=== PATIENT | female | born 1960 | race Two or more races ===

== ENCOUNTER 2021-06-06 00:07 | Emergency (ER) | payer MEDICAID ==
[~2021-06-06] VITALS: Ht 160 cm; Wt 55.0 kg
[2021-06-06 00:56] LABS: CLARITY URINE CLEAR (CLEAR); COLOR URINE YELLOW (YELLOW); HEMATOCRIT. 30.6 % (36.0-48.0); HEMOGLOBIN. 10.4 g/dL (12.0-16.0); KETONES URINE NEGATIVE (NEGATIVE); LEUKOCYTE ESTERASE URINE TRACE (NEGATIVE); MEAN CORPUSCULAR HEMOGLOBIN 36.5 pg (28.0-32.0); MEAN PLATELET VOLUME 7.3 fl (7.4-10.4); NITRITE URINE NEGATIVE (NEGATIVE); OCCULT BLOOD URINE NEGATIVE (NEGATIVE); PH URINE 6.5 (4.5-8.0); PLATELET 299 x1000/uL (130-400); PROTEIN URINE TRACE (NEGATIVE); RED BLOOD CELL COUNT 2.85 mill/uL (4.2-5.4); RED CELL DISTRIBUTION WIDTH 16.1 % (11.6-14.6); SPECIFIC GRAVITY URINE 1.007 (1.005-1.030); UROBILINOGEN URINE 0.2 E.U./dL (0.2-1.0)
[2021-06-06 01:03] LABS: CHLORIDE 102 mEq/L (98-107)
[2021-06-06 01:10] LABS: ETHANOL BLOOD < 10 mg/dL
[2021-06-06 01:12] LABS: *AMPHETAMINES SCREEN URINE NEGATIVE (NEGATIVE); *BARBITURATES SCREEN URINE NEGATIVE (NEGATIVE); *BENZODIAZEPINES SCREEN URINE NEGATIVE (NEGATIVE); *COCAINE SCREEN URINE NEGATIVE (NEGATIVE); METHADONE URINE SCREEN NEGATIVE (NEGATIVE)
[2021-06-06 01:13] LABS: CANNABINOID URINE SCREEN NEGATIVE (NEGATIVE); OPIATES URINE SCREEN NEGATIVE (NEGATIVE); PHENCYCLIDINE URINE SCREEN NEGATIVE (NEGATIVE)
[2021-06-06 03:46] VITALS: BP 140/96
[2021-06-06 04:07] LABS: PLATELET ESTIMATE NORMAL
== END 2021-06-06 03:57 | disposition home or self-care (01) ==
LOC: ER 00:07
DX: G40.909 Epilepsy, unspecified, not intractable, without status epilepticus (principal); Z85.9 Personal history of malignant neoplasm, unspecified
CPT/HCPCS: 36415; 80053; 80305; 80320; 81003; 82140; 85025; 93005; 99285; G0480

== ENCOUNTER 2021-06-26 16:37 | Emergency (ER) | payer MEDICAID ==
[~2021-06-26] VITALS: Ht 167.6 cm; Wt 63.0 kg
[2021-06-26 18:57] LABS: CHLORIDE 108 mEq/L (98-107)
[2021-06-26 18:58] LABS: BASOPHILS % 0.6 % (0.0-2.0); EOSINOPHILS % 3.1 % (0.0-5.0); HEMATOCRIT. 33.3 % (36.0-48.0); HEMOGLOBIN. 11.1 g/dL (12.0-16.0); LYMPHOCYTES % 17.2 % (20.0-50.0); MEAN CORPUSCULAR HEMOGLOBIN 36.2 pg (28.0-32.0); MEAN CORPUSCULAR VOLUME 108.2 fL (81.0-99.0); MEAN PLATELET VOLUME 7.6 fl (7.4-10.4); MONOCYTES % 13.4 % (2.0-8.0); NEUTROPHILS % 65.7 % (40.0-76.0); PLATELET 247 x1000/uL (130-400); RED BLOOD CELL COUNT 3.08 mill/uL (4.2-5.4); RED CELL DISTRIBUTION WIDTH 15.1 % (11.6-14.6)
[2021-06-26 21:08] VITALS: BP 118/80
[2021-06-26] MEDS ORDERED: KETOROLAC 15MG/ML VIAL IV NR (21:15)
== END 2021-06-26 22:27 | disposition home or self-care (01) ==
LOC: ER 16:37
DX: R07.89 Other chest pain (principal)
CPT/HCPCS: 36415; 71045; 71275; 74174; 80053; 84484; 85025; 93005; 96374; 99285; J1885

== ENCOUNTER 2021-07-15 14:10 | Inpatient (IN) | payer MEDICAID ==
[~2021-07-15] VITALS: Ht 160 cm; Wt 74.4 kg
[2021-07-15] MEDS ORDERED: MORPHINE SULFATE 4 MG/ML CPJ (NOT FOR IM USE) IV STA (16:08)
[2021-07-15] MEDS ORDERED: ONDANSETRON HCL 4MG/2ML INJ IV STA (16:08)
[2021-07-15] MEDS ORDERED: SODIUM CHLORIDE 0.9% 1,000 ML IV ONE (16:15)
[2021-07-15 16:25] LABS: BASOPHILS % 0.4 % (0.0-2.0); EOSINOPHILS % 1.3 % (0.0-5.0); HEMATOCRIT. 31.9 % (36.0-48.0); HEMOGLOBIN. 10.6 g/dL (12.0-16.0); LYMPHOCYTES % 11.7 % (20.0-50.0); MEAN CORPUSCULAR VOLUME 105.5 fL (81.0-99.0); MEAN PLATELET VOLUME 7.1 fl (7.4-10.4); MONOCYTES % 9.8 % (2.0-8.0); NEUTROPHILS % 76.8 % (40.0-76.0); PLATELET 297 x1000/uL (130-400); RED BLOOD CELL COUNT 3.03 mill/uL (4.2-5.4); RED CELL DISTRIBUTION WIDTH 14.8 % (11.6-14.6)
[2021-07-15 16:27] LABS: CLARITY URINE CLOUDY (CLEAR); COLOR URINE DARK YELLOW (YELLOW); KETONES URINE TRACE (NEGATIVE); LEUKOCYTE ESTERASE URINE TRACE (NEGATIVE); NITRITE URINE NEGATIVE (NEGATIVE); OCCULT BLOOD URINE NEGATIVE (NEGATIVE); PH URINE 5.5 (4.5-8.0); PROTEIN URINE 2+ (NEGATIVE); SPECIFIC GRAVITY URINE 1.026 (1.005-1.030); UROBILINOGEN URINE 0.2 E.U./dL (0.2-1.0)
[2021-07-15 16:29] LABS: CHLORIDE 103 mEq/L (98-107)
[2021-07-15 16:31] LABS: PROTHROMBIN TIME 10.9 sec (9.6-11.0)
[2021-07-15] MEDS ORDERED: SODIUM CHLORIDE 0.9% 1000ML BAG (SEPSIS BOLUS) IV ONE (17:00)
[2021-07-15] MEDS ORDERED: PIPERACILLIN/TAZ 3.375G PREMIX 50 ML IV ONE (17:00)
[2021-07-16 09:00] VITALS: BP 125/66
[2021-07-16] MEDS ORDERED: PHEN50TA2 PO (10:17)
[2021-07-16] MEDS ORDERED: LAMO200T50 MT (10:17)
[2021-07-16] MEDS ORDERED: OMEP40CA20 MT (10:17)
[2021-07-16] MEDS ORDERED: LEVE10006 MT (10:17)
[2021-07-16] MEDS ORDERED: CLONIDINE 0.1MG TABLET PO PRN (10:30)
[2021-07-16] MEDS ORDERED: ACETAMINOPHEN 325MG TABLET PO PRN ×2 (10:30)
[2021-07-16] MEDS ORDERED: LORAZEPAM 0.5MG TABLET PO PRN (10:30)
[2021-07-16] MEDS ORDERED: IPRATROPIUM/ALBUTEROL 0.5-3(2.5)MG/3ML NEB HHN PRN (10:30)
[2021-07-16] MEDS ORDERED: HYDROCODONE/ACETAMINOPHEN 5/325MG TABLET PO PRN (10:30)
[2021-07-16] MEDS: MORPHINE SULFATE 2 MG/ML CPJ (NOT FOR IM USE) IV PRN ×2 (11:01→21:06)
[2021-07-16 12:00] VITALS: BP 107/76
[2021-07-16] MEDS: SODIUM CHLORIDE 0.9% 1,000 ML IV SCH (12:54)
[2021-07-16] MEDS: PANTOPRAZOLE SODIUM 40 MG/VIAL IV SCH (12:54)
[2021-07-16] MEDS: LEVETIRACETAM 1,000 MG in SODIUM CHLORIDE 0.9% 100 ML IV SCH ×2 (14:01→21:37)
[2021-07-16] MEDS: PHENYTOIN SODIUM EXTENDED 100MG CAPSULE PO SCH ×2 (14:01→21:06)
[2021-07-16] MEDS: LAMOTRIGINE 100MG TABLET PO SCH ×2 (14:01→21:06)
[2021-07-16 16:00] VITALS: BP 114/62
[2021-07-16 16:28] LABS: CANNABINOID URINE SCREEN NEGATIVE (NEGATIVE); METHADONE URINE SCREEN NEGATIVE (NEGATIVE); OPIATES URINE SCREEN PRESUMTIVE POSITIVE (NEGATIVE); PHENCYCLIDINE URINE SCREEN NEGATIVE (NEGATIVE)
[2021-07-16 16:29] LABS: *AMPHETAMINES SCREEN URINE NEGATIVE (NEGATIVE); *BARBITURATES SCREEN URINE NEGATIVE (NEGATIVE); *BENZODIAZEPINES SCREEN URINE NEGATIVE (NEGATIVE); *COCAINE SCREEN URINE NEGATIVE (NEGATIVE)
[2021-07-16 20:00] VITALS: BP 142/74
[2021-07-16] MEDS: ONDANSETRON HCL 4MG/2ML INJ IV PRN (21:06)
[2021-07-17] VITALS: BP 119/64
[2021-07-17] MEDS: HYDROCODONE/ACETAMINOPHEN 10/325MG TABLET PO PRN ×3 (00:34→21:43)
[2021-07-17 04:00] VITALS: BP 111/66
[2021-07-17] MEDS: ONDANSETRON HCL 4MG/2ML INJ IV PRN ×2 (04:38→21:42)
[2021-07-17] MEDS: MORPHINE SULFATE 2 MG/ML CPJ (NOT FOR IM USE) IV PRN (04:38)
[2021-07-17] MEDS: SODIUM CHLORIDE 0.9% 1,000 ML IV SCH ×2 (04:39→18:06)
[2021-07-17] MEDS: PHENYTOIN SODIUM EXTENDED 100MG CAPSULE PO SCH (05:50)
[2021-07-17 06:47] LABS: CHLORIDE 103 mEq/L (98-107)
[2021-07-17 06:58] LABS: BASOPHILS % 0.4 % (0.0-2.0); EOSINOPHILS % 2.7 % (0.0-5.0); HEMATOCRIT. 31.2 % (36.0-48.0); HEMOGLOBIN. 10.4 g/dL (12.0-16.0); LYMPHOCYTES % 10.4 % (20.0-50.0); MEAN CORPUSCULAR VOLUME 105.2 fL (81.0-99.0); MEAN PLATELET VOLUME 6.9 fl (7.4-10.4); MONOCYTES % 12.7 % (2.0-8.0); NEUTROPHILS % 73.8 % (40.0-76.0); PLATELET 300 x1000/uL (130-400); RED BLOOD CELL COUNT 2.96 mill/uL (4.2-5.4); RED CELL DISTRIBUTION WIDTH 14.6 % (11.6-14.6)
[2021-07-17 08:02] VITALS: BP 116/64
[2021-07-17] MEDS: PANTOPRAZOLE SODIUM 40 MG/VIAL IV SCH (09:12)
[2021-07-17] MEDS: LAMOTRIGINE 100MG TABLET PO SCH ×2 (09:13→21:42)
[2021-07-17] MEDS ORDERED: INFLUENZA VACCINE 05/PF 0.5 ML SYRINGE IM ONE (10:00)
[2021-07-17] MEDS ORDERED: NALOXONE HCL 0.4MG/ML VIAL IV PRN (10:45)
[2021-07-17] MEDS: LEVETIRACETAM 1,000 MG in SODIUM CHLORIDE 0.9% 100 ML IV SCH ×2 (10:49→21:42)
[2021-07-17] MEDS ORDERED: PHENYTOIN SODIUM 400 MG in SODIUM CHLORIDE 0.9% 50 ML IV SCH ×2 (12:00→18:45)
[2021-07-17 12:20] VITALS: BP 124/68
[2021-07-17 16:00] VITALS: BP 104/77
[2021-07-17] MEDS: LIDOCAINE 5% PATCH TOP SCH (18:05)
[2021-07-17 20:00] VITALS: BP 131/76
[2021-07-18] VITALS: BP 118/65
[2021-07-18] MEDS ORDERED: PHENYTOIN SODIUM 400 MG in SODIUM CHLORIDE 0.9% 50 ML IV SCH (02:00)
[2021-07-18] MEDS: HYDROCODONE/ACETAMINOPHEN 10/325MG TABLET PO PRN (02:18)
[2021-07-18 04:00] VITALS: BP 120/77
[2021-07-18] MEDS: PHENYTOIN SODIUM 400 MG in SODIUM CHLORIDE 0.9% 50 ML IV SCH ×2 (05:37→18:34)
[2021-07-18] MEDS: PHENYTOIN SODIUM EXTENDED 100MG CAPSULE PO SCH ×3 (05:37→20:49)
[2021-07-18] MEDS: MORPHINE SULFATE 2 MG/ML CPJ (NOT FOR IM USE) IV PRN (06:42)
[2021-07-18 07:28] LABS: INR 1.1; PROTHROMBIN TIME 11.8 sec (9.6-11.0)
[2021-07-18 07:56] VITALS: BP 114/74
[2021-07-18] MEDS ORDERED: SODIUM BICARBONATE 4% (2.4MEQ) 5ML VIAL IV ONE (08:53)
[2021-07-18] MEDS ORDERED: LIDOCAINE HCL 1% 30ML VIAL (10MG/ML) ONE (08:53)
[2021-07-18] MEDS: PANTOPRAZOLE SODIUM 40 MG/VIAL IV SCH (10:37)
[2021-07-18] MEDS: LAMOTRIGINE 100MG TABLET PO SCH ×2 (10:38→20:49)
[2021-07-18] MEDS: LEVETIRACETAM 1,000 MG in SODIUM CHLORIDE 0.9% 100 ML IV SCH ×2 (10:38→20:48)
[2021-07-18] MEDS: SODIUM CHLORIDE 0.9% 1,000 ML IV SCH ×2 (10:39→23:51)
[2021-07-18 11:07] VITALS: BP 126/69
[2021-07-18] MEDS: LIDOCAINE 5% PATCH TOP SCH (11:07)
[2021-07-18 16:00] VITALS: BP 114/66
[2021-07-18] MEDS: BENZONATATE 100MG CAPSULE PO PRN (18:34)
[2021-07-18 20:20] VITALS: BP 118/73
[2021-07-18] MEDS: ONDANSETRON HCL 4MG/2ML INJ IV PRN (20:48)
[2021-07-19] VITALS (7 sets, daily range): BP systolic 113–130; BP diastolic 67–81
[2021-07-19] MEDS: PHENYTOIN SODIUM EXTENDED 100MG CAPSULE PO SCH ×3 (05:53→21:46)
[2021-07-19] MEDS: PHENYTOIN SODIUM 400 MG in SODIUM CHLORIDE 0.9% 50 ML IV SCH (05:53)
[2021-07-19 07:15] LABS: BASOPHILS % 0.3 % (0.0-2.0); EOSINOPHILS % 1.3 % (0.0-5.0); HEMOGLOBIN. 10.1 g/dL (12.0-16.0); LYMPHOCYTES % 10.6 % (20.0-50.0); MEAN CORPUSCULAR HEMOGLOBIN 34.8 pg (28.0-32.0); MEAN CORPUSCULAR VOLUME 103.5 fL (81.0-99.0); MONOCYTES % 11.8 % (2.0-8.0); PLATELET 351 x1000/uL (130-400); RED CELL DISTRIBUTION WIDTH 14.8 % (11.6-14.6)
[2021-07-19 07:26] LABS: CHLORIDE 102 mEq/L (98-107)
[2021-07-19] MEDS: PANTOPRAZOLE SODIUM 40 MG/VIAL IV SCH (09:03)
[2021-07-19] MEDS: LAMOTRIGINE 100MG TABLET PO SCH ×2 (09:03→21:46)
[2021-07-19] MEDS: LIDOCAINE 5% PATCH TOP SCH (09:05)
[2021-07-19] MEDS: LEVETIRACETAM 1,000 MG in SODIUM CHLORIDE 0.9% 100 ML IV SCH ×2 (10:16→21:46)
[2021-07-19] MEDS ORDERED: LORAZEPAM 2MG/ML CPJ IV PRN (10:45)
[2021-07-19] MEDS: METOCLOPRAMIDE HCL 10MG/2ML VIAL IV SCH ×2 (11:48→18:55)
[2021-07-19] MEDS: ONDANSETRON HCL 4MG/2ML INJ IV PRN (11:48)
[2021-07-19] MEDS: SODIUM CHLORIDE 0.9% 1,000 ML IV SCH (14:22)
[2021-07-19] MEDS: DOCUSATE SODIUM 100MG CAPSULE PO PRN (18:55)
[2021-07-20 00:22] VITALS: BP 111/68
[2021-07-20] MEDS: METOCLOPRAMIDE HCL 10MG/2ML VIAL IV SCH ×5 (00:53→23:40)
[2021-07-20] MEDS: BENZONATATE 100MG CAPSULE PO PRN ×2 (01:00→21:57)
[2021-07-20 04:00] VITALS: BP 102/61
[2021-07-20] MEDS: PHENYTOIN SODIUM 400 MG in SODIUM CHLORIDE 0.9% 50 ML IV SCH ×2 (05:09→17:40)
[2021-07-20] MEDS: DOCUSATE SODIUM 100MG CAPSULE PO PRN (05:09)
[2021-07-20] MEDS: PHENYTOIN SODIUM EXTENDED 100MG CAPSULE PO SCH ×3 (05:09→21:33)
[2021-07-20] MEDS: SODIUM CHLORIDE 0.9% 1,000 ML IV SCH ×2 (05:10→21:57)
[2021-07-20] MEDS: ONDANSETRON HCL 4MG/2ML INJ IV PRN ×2 (06:44→13:30)
[2021-07-20 08:00] VITALS: BP 101/49
[2021-07-20] MEDS: LEVETIRACETAM 1,000 MG in SODIUM CHLORIDE 0.9% 100 ML IV SCH ×2 (09:37→21:33)
[2021-07-20] MEDS: LAMOTRIGINE 100MG TABLET PO SCH ×2 (09:37→21:33)
[2021-07-20] MEDS: LIDOCAINE 5% PATCH TOP SCH (09:37)
[2021-07-20] MEDS: PANTOPRAZOLE SODIUM 40 MG/VIAL IV SCH (09:37)
[2021-07-20] MEDS ORDERED: TRAMADOL 50MG TABLET PO PRN (09:45)
[2021-07-20 12:13] VITALS: BP 112/55
[2021-07-20 16:19] VITALS: BP 113/63
[2021-07-20 20:00] VITALS: BP 127/81
[2021-07-21] VITALS: BP 103/60
[2021-07-21 04:00] VITALS: BP 126/82
[2021-07-21 05:39] LABS: CHLORIDE 105 mEq/L (98-107)
[2021-07-21 05:42] LABS: BASOPHILS % 0.6 % (0.0-2.0); EOSINOPHILS % 1.4 % (0.0-5.0); HEMATOCRIT. 27.7 % (36.0-48.0); HEMOGLOBIN. 9.4 g/dL (12.0-16.0); MEAN CORPUSCULAR HEMOGLOBIN 34.7 pg (28.0-32.0); MEAN CORPUSCULAR VOLUME 102.8 fL (81.0-99.0); MEAN PLATELET VOLUME 6.7 fl (7.4-10.4); PLATELET 353 x1000/uL (130-400); RED CELL DISTRIBUTION WIDTH 14.6 % (11.6-14.6)
[2021-07-21] MEDS: METOCLOPRAMIDE HCL 10MG/2ML VIAL IV SCH ×4 (06:03→23:15)
[2021-07-21] MEDS: PHENYTOIN SODIUM EXTENDED 100MG CAPSULE PO SCH ×4 (06:03→21:24)
[2021-07-21] MEDS: PHENYTOIN SODIUM 400 MG in SODIUM CHLORIDE 0.9% 50 ML IV SCH ×2 (06:04→18:58)
[2021-07-21 08:00] VITALS: BP 133/78
[2021-07-21] MEDS: LAMOTRIGINE 100MG TABLET PO SCH ×2 (09:55→21:24)
[2021-07-21] MEDS: LIDOCAINE 5% PATCH TOP SCH (09:56)
[2021-07-21 12:00] VITALS: BP 128/76
[2021-07-21] MEDS: MECLIZINE 25MG TABLET PO PRN ×2 (13:55→14:04)
[2021-07-21 16:00] VITALS: BP 128/76
[2021-07-21] MEDS: PANTOPRAZOLE SODIUM 40 MG/VIAL IV SCH (16:06)
[2021-07-21] MEDS: ONDANSETRON HCL 4MG/2ML INJ IV PRN ×2 (16:06→21:24)
[2021-07-21] MEDS: SODIUM CHLORIDE 0.9% 1,000 ML IV SCH (16:07)
[2021-07-21] MEDS: LEVETIRACETAM 1,000 MG in SODIUM CHLORIDE 0.9% 100 ML IV SCH ×2 (16:32→18:25)
[2021-07-21 20:00] VITALS: BP 123/85
[2021-07-21] MEDS: BENZONATATE 100MG CAPSULE PO PRN (21:24)
[2021-07-22 00:01] VITALS: BP 138/82
[2021-07-22 04:00] VITALS: BP 123/65
[2021-07-22] MEDS: METOCLOPRAMIDE HCL 10MG/2ML VIAL IV SCH ×3 (05:40→18:00)
[2021-07-22] MEDS: PHENYTOIN SODIUM EXTENDED 100MG CAPSULE PO SCH ×3 (05:40→21:17)
[2021-07-22] MEDS: PHENYTOIN SODIUM 400 MG in SODIUM CHLORIDE 0.9% 50 ML IV SCH (05:40)
[2021-07-22] MEDS: SODIUM CHLORIDE 0.9% 1,000 ML IV SCH ×2 (05:40→20:15)
[2021-07-22] MEDS: BENZONATATE 100MG CAPSULE PO PRN (05:58)
[2021-07-22 07:03] LABS: CHLORIDE 107 mEq/L (98-107)
[2021-07-22 07:55] LABS: BASOPHILS % 0.7 % (0.0-2.0); EOSINOPHILS % 2.2 % (0.0-5.0); HEMATOCRIT. 33.4 % (36.0-48.0); HEMOGLOBIN. 10.5 g/dL (12.0-16.0); LYMPHOCYTES % 12.3 % (20.0-50.0); MEAN CORPUSCULAR HEMOGLOBIN 33.3 pg (28.0-32.0); MEAN CORPUSCULAR VOLUME 106.3 fL (81.0-99.0); MEAN PLATELET VOLUME 8.5 fl (7.4-10.4); MONOCYTES % 11.7 % (2.0-8.0); NEUTROPHILS % 73.1 % (40.0-76.0); PLATELET 106 x1000/uL (130-400); RED BLOOD CELL COUNT 3.14 mill/uL (4.2-5.4); RED CELL DISTRIBUTION WIDTH 15.2 % (11.6-14.6)
[2021-07-22 08:00] VITALS: BP 114/60
[2021-07-22] MEDS: PANTOPRAZOLE SODIUM 40 MG/VIAL IV SCH (08:57)
[2021-07-22] MEDS: LAMOTRIGINE 100MG TABLET PO SCH ×2 (08:57→21:17)
[2021-07-22] MEDS: LIDOCAINE 5% PATCH TOP SCH (08:58)
[2021-07-22] MEDS: LEVETIRACETAM 1,000 MG in SODIUM CHLORIDE 0.9% 100 ML IV SCH (10:22)
[2021-07-22] MEDS ORDERED: ONDA4TAB11 PO (11:25)
[2021-07-22] MEDS ORDERED: METO10TA3 MT (11:25)
[2021-07-22] MEDS ORDERED: MECL-159 MT (11:25)
[2021-07-22 12:00] VITALS: BP 117/70
[2021-07-22 16:00] VITALS: BP 145/72
[2021-07-22 20:00] VITALS: BP 107/60
[2021-07-22] MEDS: LEVETIRACETAM 500MG TABLET PO SCH (21:17)
[2021-07-23 04:30] VITALS: BP 122/60
[2021-07-23] MEDS: METOCLOPRAMIDE HCL 10MG/2ML VIAL IV SCH ×4 (05:09→18:00)
[2021-07-23] MEDS: PHENYTOIN SODIUM EXTENDED 100MG CAPSULE PO SCH ×2 (05:19→13:50)
[2021-07-23] MEDS: LAMOTRIGINE 100MG TABLET PO SCH (08:03)
[2021-07-23] MEDS: LEVETIRACETAM 500MG TABLET PO SCH (08:03)
[2021-07-23] MEDS: LIDOCAINE 5% PATCH TOP SCH (08:04)
[2021-07-23] MEDS: PANTOPRAZOLE SODIUM 40 MG/VIAL IV SCH (08:04)
[2021-07-23 08:08] VITALS: BP 131/77
[2021-07-23 09:14] VITALS: BP 131/77
[2021-07-23] MEDS: SODIUM CHLORIDE 0.9% 1,000 ML IV SCH (11:39)
[2021-07-23 11:47] VITALS: BP 130/73
[2021-07-23 16:20] VITALS: BP 136/83
== END 2021-07-23 18:40 | disposition home or self-care (01) | DRG 530 ==
LOC: ER 14:10 → 6WST 19:59 → ENRESERV 07-16 07:05
PROVIDERS: ADMIT Internal Medicine; ATTEND Internal Medicine
PROC: 0W9G3ZZ Drainage of Peritoneal Cavity, Percutaneous Approach (ICD-10-PCS; principal; 2021-07-18)
DX: C56.9 Malignant neoplasm of unspecified ovary (principal); E87.2 Acidosis; R18.8 Other ascites; E46 Unspecified protein-calorie malnutrition; C78.6 Secondary malignant neoplasm of retroperitoneum and peritoneum; D53.9 Nutritional anemia, unspecified; D72.821 Monocytosis (symptomatic); G40.909 Epilepsy, unspecified, not intractable, without status epilepticus; Z20.822 Contact with and (suspected) exposure to COVID-19; K44.9 Diaphragmatic hernia without obstruction or gangrene; Z82.49 Family history of ischemic heart disease and other diseases of the circulatory system; Z90.710 Acquired absence of both cervix and uterus; Z68.29 Body mass index [BMI] 29.0-29.9, adult; R80.9 Proteinuria, unspecified; R82.71 Bacteriuria
CPT/HCPCS: 36415; 49083; 71045; 74177; 76705; 80048; 80053; 80185; 80305; 81003; 82040; 82962; 83605; 84145; 85025; 87426; 88108; 88312; 99291; C1893; C9113; J1165; J1953; J2270; J2405; J2543; J2765; J3490; J7030; J7040; J7050; J8597

== ENCOUNTER 2021-07-24 15:53 | Inpatient (IN) | payer MEDICAID ==
[~2021-07-24] VITALS: Ht 162.6 cm; Wt 68.0 kg
[~2021-07-24 15:53] MED LIST: LAMO200T50 MT; LEVE10006 MT; MECL-159 MT; METO10TA3 MT; OMEP40CA20 MT; ONDA4TAB11 PO; PHEN50TA2 PO
[2021-07-24] MEDS ORDERED: MORPHINE SULFATE 4 MG/ML CPJ (NOT FOR IM USE) IV STA (16:47)
[2021-07-24 17:25] LABS: BASOPHILS % 0.4 % (0.0-2.0); EOSINOPHILS % 0.2 % (0.0-5.0); HEMATOCRIT. 35.1 % (36.0-48.0); HEMOGLOBIN. 11.8 g/dL (12.0-16.0); MEAN CORPUSCULAR HEMOGLOBIN 34.4 pg (28.0-32.0); MEAN CORPUSCULAR VOLUME 102.7 fL (81.0-99.0); MEAN PLATELET VOLUME 6.5 fl (7.4-10.4); MONOCYTES % 9.9 % (2.0-8.0); NEUTROPHILS % 81.5 % (40.0-76.0); PLATELET 545 x1000/uL (130-400); RED BLOOD CELL COUNT 3.42 mill/uL (4.2-5.4); RED CELL DISTRIBUTION WIDTH 15.5 % (11.6-14.6)
[2021-07-24 17:34] LABS: CHLORIDE 95 mEq/L (98-107)
[2021-07-24] MEDS ORDERED: ONDANSETRON HCL 4MG/2ML INJ IV STA (17:34)
[2021-07-24] MEDS ORDERED: FAMOTIDINE 20MG/2ML VIAL IV STA (17:34)
[2021-07-24 17:35] LABS: INR 1.2; PROTHROMBIN TIME 12.4 sec (9.6-11.0)
[2021-07-24] MEDS ORDERED: SODIUM CHLORIDE 0.9% 1,000 ML IV ONE (17:45)
[2021-07-24] MEDS ORDERED: MORPHINE SULFATE 2 MG/ML CPJ (NOT FOR IM USE) IV NR (19:15)
[2021-07-24] MEDS ORDERED: PANTOPRAZOLE 80 MG in SODIUM CHLORIDE 0.9% 100 ML IV STA (22:32)
[2021-07-24] MEDS ORDERED: PANTOPRAZOLE SODIUM 40 MG/VIAL IV STA (22:32)
[2021-07-24] MEDS ORDERED: OCTREOTIDE 1,000 MCG in SODIUM CHLORIDE 0.9% 100 ML IV STA (22:32)
[2021-07-24] MEDS ORDERED: OCTREOTIDE ACETATE 50 MCG/ML 1ML IV STA (22:32)
[2021-07-24] MEDS ORDERED: CEFTRIAXONE 2 G PREMIX 50 ML IV ONE (22:45)
[2021-07-25] MEDS ORDERED: SODIUM CHLORIDE 0.9% 1,000 ML IV ONE (01:30)
[2021-07-25] MEDS ORDERED: MORPHINE SULFATE 4 MG/ML CPJ (NOT FOR IM USE) IV ONE (01:45)
[2021-07-25] MEDS ORDERED: ONDANSETRON HCL 4MG/2ML INJ IV ONE (01:45)
[2021-07-25] MEDS ORDERED: MORPHINE SULFATE 2 MG/ML CPJ (NOT FOR IM USE) IV SCH ×2 (01:50→02:00)
[2021-07-25 05:10] VITALS: BP 136/77
[2021-07-25 08:00] VITALS: BP 128/78
[2021-07-25] MEDS ORDERED: MAGNESIUM/ALUMINUM HYDROXIDE/SIMETHICONE 30ML UDC PO PRN (09:30)
[2021-07-25] MEDS ORDERED: HYDROCODONE/ACETAMINOPHEN 5/325MG TABLET PO PRN (09:30)
[2021-07-25] MEDS ORDERED: NA PHOS,M-B/NA PHOS,DI-BA ENEMA 118ML PR PRN (09:30)
[2021-07-25] MEDS ORDERED: IPRATROPIUM/ALBUTEROL 0.5-3(2.5)MG/3ML NEB NEB PRN (09:30)
[2021-07-25] MEDS ORDERED: LORAZEPAM 2MG/ML CPJ IV PRN (09:30)
[2021-07-25] MEDS ORDERED: CLONIDINE 0.1MG TABLET PO PRN (09:30)
[2021-07-25] MEDS ORDERED: DOCUSATE SODIUM 100MG CAPSULE PO PRN (09:30)
[2021-07-25] MEDS ORDERED: NALOXONE HCL 0.4MG/ML VIAL IV PRN (09:45)
[2021-07-25] MEDS: SODIUM CHLORIDE 0.45% 1,000 ML IV SCH (10:18)
[2021-07-25] MEDS: ONDANSETRON HCL 4MG/2ML INJ IV PRN ×3 (10:18→20:02)
[2021-07-25 12:00] VITALS: BP 157/96
[2021-07-25] MEDS ORDERED: PHENYTOIN SODIUM EXTENDED 100MG CAPSULE PO SCH (13:00)
[2021-07-25] MEDS ORDERED: LIDOCAINE HCL 1% 10 MG/ML 10ML VIAL ONE (13:50)
[2021-07-25] MEDS: LIDOCAINE 5% PATCH TOP SCH (15:44)
[2021-07-25 16:00] VITALS: BP 165/88
[2021-07-25] MEDS: MORPHINE SULFATE 2 MG/ML CPJ (NOT FOR IM USE) IV PRN ×2 (17:46→22:40)
[2021-07-25 20:00] VITALS: BP 148/90
[2021-07-25] MEDS: LEVETIRACETAM 500MG TABLET PO SCH (22:18)
[2021-07-25] MEDS: LAMOTRIGINE 100MG TABLET PO SCH (22:19)
[2021-07-25] MEDS: PANTOPRAZOLE SODIUM 40 MG/VIAL IV SCH (22:19)
[2021-07-25] MEDS: DOCUSATE SODIUM 100MG CAPSULE PO SCH (22:19)
[2021-07-25] MEDS: PHENYTOIN SODIUM EXTENDED 100MG CAPSULE PO SCH (22:19)
[2021-07-26] VITALS: BP 168/91
[2021-07-26 00:28] LABS: CLARITY URINE CLOUDY (CLEAR); COLOR URINE DARK YELLOW (YELLOW); KETONES URINE NEGATIVE (NEGATIVE); LEUKOCYTE ESTERASE URINE TRACE (NEGATIVE); NITRITE URINE NEGATIVE (NEGATIVE); OCCULT BLOOD URINE NEGATIVE (NEGATIVE); PROTEIN URINE 2+ (NEGATIVE); SPECIFIC GRAVITY URINE 1.028 (1.005-1.030)
[2021-07-26] MEDS: GUAIFENESIN 200MG/10ML SUGAR FREE UDC PO PRN (00:51)
[2021-07-26] MEDS: DIPHENHYDRAMINE 50MG/ML VIAL IV PRN (01:11)
[2021-07-26] MEDS: SODIUM CHLORIDE 0.45% 1,000 ML IV SCH ×2 (02:10→11:15)
[2021-07-26] MEDS: MORPHINE SULFATE 2 MG/ML CPJ (NOT FOR IM USE) IV PRN ×2 (03:36→13:12)
[2021-07-26 04:00] VITALS: BP 141/85
[2021-07-26 08:00] VITALS: BP 141/86
[2021-07-26] MEDS: LEVETIRACETAM 500MG TABLET PO SCH ×2 (08:34→21:15)
[2021-07-26] MEDS: PANTOPRAZOLE SODIUM 40 MG/VIAL IV SCH ×2 (08:34→21:16)
[2021-07-26] MEDS: POLYETHYLENE GLYCOL 3350 (17GM) 1 DOSE PACK PO SCH (08:34)
[2021-07-26] MEDS: LAMOTRIGINE 100MG TABLET PO SCH ×2 (08:34→21:15)
[2021-07-26] MEDS: DOCUSATE SODIUM 100MG CAPSULE PO SCH ×2 (08:34→18:22)
[2021-07-26] MEDS: LIDOCAINE 5% PATCH TOP SCH (08:35)
[2021-07-26 09:09] LABS: INR 1.4; PROTHROMBIN TIME 14.6 sec (9.6-11.0)
[2021-07-26 11:17] LABS: HEMATOCRIT. 29.2 % (36.0-48.0); MEAN CORPUSCULAR HEMOGLOBIN 35.3 pg (28.0-32.0); MEAN CORPUSCULAR VOLUME 103.2 fL (81.0-99.0); MEAN PLATELET VOLUME 6.5 fl (7.4-10.4); PLATELET 342 x1000/uL (130-400); RED BLOOD CELL COUNT 2.83 mill/uL (4.2-5.4); RED CELL DISTRIBUTION WIDTH 15.1 % (11.6-14.6)
[2021-07-26 11:27] LABS: CHLORIDE 92 mEq/L (98-107)
[2021-07-26 11:36] LABS: LDL CHOLESTEROL 64 mg/dL (5-100)
[2021-07-26 11:38] LABS: HDL CHOLESTEROL 40 mg/dL (40-59); T4 FREE 1.12 ng/dL (0.76-1.46)
[2021-07-26 12:00] VITALS: BP 134/86
[2021-07-26 12:53] LABS: PLATELET ESTIMATE NORMAL
[2021-07-26] MEDS ORDERED: CEFTRIAXONE 1 G PREMIX 50 ML IV SCH (13:00)
[2021-07-26] MEDS: CEFTRIAXONE 1,000 MG in DEXTROSE 5% WATER 50 ML IV SCH (14:43)
[2021-07-26 16:00] VITALS: BP 132/82
[2021-07-26] MEDS ORDERED: SODIUM CHLORIDE 0.9% 500 ML IV ONE (17:15)
[2021-07-26] MEDS: METOCLOPRAMIDE HCL 10MG/2ML VIAL IV SCH ×2 (18:21→23:44)
[2021-07-26] MEDS: METOPROLOL TARTRATE 5MG/5ML VIAL IV SCH ×2 (18:22→21:16)
[2021-07-26] MEDS: SODIUM CHLORIDE 0.9% 1,000 ML IV SCH (19:00)
[2021-07-26 20:00] VITALS: BP 140/81
[2021-07-26] MEDS: PHENYTOIN SODIUM EXTENDED 100MG CAPSULE PO SCH (21:15)
[2021-07-26] MEDS: ONDANSETRON HCL 4MG/2ML INJ IV PRN (21:35)
[2021-07-27] VITALS: BP 138/82
[2021-07-27] MEDS: ONDANSETRON HCL 4MG/2ML INJ IV PRN (02:56)
[2021-07-27 04:00] VITALS: BP 118/80
[2021-07-27] MEDS: SODIUM CHLORIDE 0.9% 1,000 ML IV SCH ×2 (05:00→14:19)
[2021-07-27] MEDS: METOCLOPRAMIDE HCL 10MG/2ML VIAL IV SCH ×3 (06:51→18:16)
[2021-07-27 08:00] VITALS: BP 106/67
[2021-07-27 08:15] LABS: BASOPHILS % 0.4 % (0.0-2.0); EOSINOPHILS % 0.6 % (0.0-5.0); HEMATOCRIT. 28.9 % (36.0-48.0); HEMOGLOBIN. 9.6 g/dL (12.0-16.0); LYMPHOCYTES % 7.8 % (20.0-50.0); MEAN CORPUSCULAR HEMOGLOBIN 34.4 pg (28.0-32.0); MEAN CORPUSCULAR VOLUME 103.1 fL (81.0-99.0); MEAN PLATELET VOLUME 6.8 fl (7.4-10.4); MONOCYTES % 12.4 % (2.0-8.0); NEUTROPHILS % 78.8 % (40.0-76.0); PLATELET 319 x1000/uL (130-400); RED CELL DISTRIBUTION WIDTH 15.4 % (11.6-14.6)
[2021-07-27 08:21] LABS: INR 1.6; PROTHROMBIN TIME 16.1 sec (9.6-11.0)
[2021-07-27 08:53] LABS: CHLORIDE 96 mEq/L (98-107)
[2021-07-27] MEDS: LEVETIRACETAM 500MG TABLET PO SCH ×3 (09:00→21:19)
[2021-07-27] MEDS: METOPROLOL TARTRATE 5MG/5ML VIAL IV SCH ×2 (09:00→21:18)
[2021-07-27] MEDS: DOCUSATE SODIUM 100MG CAPSULE PO SCH ×3 (09:00→16:26)
[2021-07-27] MEDS: LAMOTRIGINE 100MG TABLET PO SCH ×3 (09:00→21:19)
[2021-07-27] MEDS: POLYETHYLENE GLYCOL 3350 (17GM) 1 DOSE PACK PO SCH ×2 (09:00→13:00)
[2021-07-27] MEDS: PANTOPRAZOLE SODIUM 40 MG/VIAL IV SCH ×2 (09:35→21:17)
[2021-07-27] MEDS: MORPHINE SULFATE 2 MG/ML CPJ (NOT FOR IM USE) IV PRN ×3 (09:37→21:21)
[2021-07-27] MEDS: LIDOCAINE 5% PATCH TOP SCH (09:38)
[2021-07-27 12:00] VITALS: BP 119/73
[2021-07-27 16:00] VITALS: BP 141/82
[2021-07-27] MEDS: CEFTRIAXONE 1,000 MG in DEXTROSE 5% WATER 50 ML IV SCH (16:27)
[2021-07-27 20:00] VITALS: BP 130/85
[2021-07-27] MEDS: PHENYTOIN SODIUM EXTENDED 100MG CAPSULE PO SCH (21:18)
[2021-07-27] MEDS: ACETAMINOPHEN 325MG TABLET PO PRN (22:38)
[2021-07-28] VITALS: BP 128/71
[2021-07-28] MEDS: METOCLOPRAMIDE HCL 10MG/2ML VIAL IV SCH ×5 (01:12→23:47)
[2021-07-28] MEDS: SODIUM CHLORIDE 0.9% 1,000 ML IV SCH ×3 (01:13→20:50)
[2021-07-28 04:00] VITALS: BP 134/82
[2021-07-28 08:00] VITALS: BP 132/76
[2021-07-28] MEDS: PANTOPRAZOLE SODIUM 40 MG/VIAL IV SCH ×2 (08:43→20:49)
[2021-07-28] MEDS: MORPHINE SULFATE 2 MG/ML CPJ (NOT FOR IM USE) IV PRN ×4 (08:43→20:49)
[2021-07-28] MEDS: METOPROLOL TARTRATE 5MG/5ML VIAL IV SCH ×2 (08:43→20:48)
[2021-07-28] MEDS: LIDOCAINE 5% PATCH TOP SCH (08:44)
[2021-07-28] MEDS: DOCUSATE SODIUM 100MG CAPSULE PO SCH ×2 (08:44→17:00)
[2021-07-28] MEDS: POLYETHYLENE GLYCOL 3350 (17GM) 1 DOSE PACK PO SCH (08:44)
[2021-07-28] MEDS: LEVETIRACETAM 500MG TABLET PO SCH ×2 (08:44→20:49)
[2021-07-28] MEDS: LAMOTRIGINE 100MG TABLET PO SCH ×2 (08:44→20:50)
[2021-07-28 08:45] LABS: BASOPHILS % 0.3 % (0.0-2.0); EOSINOPHILS % 0.4 % (0.0-5.0); HEMATOCRIT. 28.4 % (36.0-48.0); HEMOGLOBIN. 9.6 g/dL (12.0-16.0); LYMPHOCYTES % 7.9 % (20.0-50.0); MEAN CORPUSCULAR HEMOGLOBIN 34.8 pg (28.0-32.0); MEAN CORPUSCULAR VOLUME 102.5 fL (81.0-99.0); MEAN PLATELET VOLUME 6.6 fl (7.4-10.4); MONOCYTES % 12.6 % (2.0-8.0); NEUTROPHILS % 78.8 % (40.0-76.0); PLATELET 292 x1000/uL (130-400); RED BLOOD CELL COUNT 2.77 mill/uL (4.2-5.4); RED CELL DISTRIBUTION WIDTH 15.3 % (11.6-14.6)
[2021-07-28 09:26] LABS: CHLORIDE 98 mEq/L (98-107)
[2021-07-28 12:00] VITALS: BP 115/68
[2021-07-28 16:00] VITALS: BP 121/73
[2021-07-28] MEDS ORDERED: GUAIFENESIN 200MG/10ML SUGAR FREE UDC PO PRN (16:15)
[2021-07-28] MEDS ORDERED: LACTULOSE 20G/30ML UDC PO PRN (16:30)
[2021-07-28] MEDS ORDERED: PHYTONADIONE 10MG/ML AMP IM NR (16:30)
[2021-07-28] MEDS: GUAIFENESIN 200MG/10ML SUGAR FREE UDC PO PRN (16:55)
[2021-07-28] MEDS: CEFTRIAXONE 1,000 MG in DEXTROSE 5% WATER 50 ML IV SCH (16:55)
[2021-07-28 19:49] LABS: INR 1.9; PROTHROMBIN TIME 19.1 sec (9.6-11.0)
[2021-07-28 20:00] VITALS: BP 139/87
[2021-07-28] MEDS: PHENYTOIN SODIUM EXTENDED 100MG CAPSULE PO SCH (20:49)
[2021-07-28] MEDS: ONDANSETRON HCL 4MG/2ML INJ IV PRN (21:20)
[2021-07-29] VITALS: BP_SYST 117; BP_SYST 130; BP_DIAS 70; BP_DIAS 87
[2021-07-29] MEDS: DIPHENHYDRAMINE 50MG/ML VIAL IV PRN (01:10)
[2021-07-29] MEDS: MORPHINE SULFATE 2 MG/ML CPJ (NOT FOR IM USE) IV PRN ×2 (02:52→18:53)
[2021-07-29 03:31] VITALS: BP 127/68
[2021-07-29] MEDS: METOCLOPRAMIDE HCL 10MG/2ML VIAL IV SCH ×4 (05:04→23:41)
[2021-07-29] MEDS: SODIUM CHLORIDE 0.9% 1,000 ML IV SCH ×2 (06:00→16:43)
[2021-07-29 07:24] LABS: HEMATOCRIT. 29.2 % (36.0-48.0); HEMOGLOBIN. 9.7 g/dL (12.0-16.0); MEAN CORPUSCULAR HEMOGLOBIN 34.7 pg (28.0-32.0); MEAN CORPUSCULAR VOLUME 104.1 fL (81.0-99.0); MEAN PLATELET VOLUME 6.8 fl (7.4-10.4); PLATELET 295 x1000/uL (130-400); RED BLOOD CELL COUNT 2.81 mill/uL (4.2-5.4); RED CELL DISTRIBUTION WIDTH 15.7 % (11.6-14.6)
[2021-07-29 08:00] VITALS: BP 115/70
[2021-07-29 08:04] LABS: CHLORIDE 101 mEq/L (98-107)
[2021-07-29] MEDS: DOCUSATE SODIUM 100MG CAPSULE PO SCH ×2 (09:14→16:42)
[2021-07-29] MEDS: LAMOTRIGINE 100MG TABLET PO SCH ×2 (09:14→20:47)
[2021-07-29] MEDS: METOPROLOL TARTRATE 5MG/5ML VIAL IV SCH ×2 (09:15→20:47)
[2021-07-29] MEDS: PANTOPRAZOLE SODIUM 40 MG/VIAL IV SCH ×2 (09:15→20:47)
[2021-07-29] MEDS: POLYETHYLENE GLYCOL 3350 (17GM) 1 DOSE PACK PO SCH (09:16)
[2021-07-29] MEDS: LIDOCAINE 5% PATCH TOP SCH (09:16)
[2021-07-29] MEDS: LEVETIRACETAM 500MG TABLET PO SCH ×2 (09:18→20:47)
[2021-07-29] MEDS ORDERED: LIDOCAINE HCL 1% 30ML VIAL (10MG/ML) ONE (10:32)
[2021-07-29] MEDS ORDERED: SODIUM BICARBONATE 4% (2.4MEQ) 5ML VIAL IV ONE (10:32)
[2021-07-29 12:00] VITALS: BP 132/68
[2021-07-29 13:08] LABS: PLATELET ESTIMATE NORMAL
[2021-07-29] MEDS: CEFTRIAXONE 1,000 MG in DEXTROSE 5% WATER 50 ML IV SCH (15:05)
[2021-07-29 16:00] VITALS: BP 108/61
[2021-07-29 20:00] VITALS: BP 127/65
[2021-07-29] MEDS: PHENYTOIN SODIUM EXTENDED 100MG CAPSULE PO SCH (20:48)
[2021-07-30] VITALS: BP 130/70
[2021-07-30] MEDS: SODIUM CHLORIDE 0.9% 1,000 ML IV SCH ×2 (03:27→13:13)
[2021-07-30 04:00] VITALS: BP 112/59
[2021-07-30] MEDS: METOCLOPRAMIDE HCL 10MG/2ML VIAL IV SCH ×2 (05:44→13:13)
[2021-07-30 08:00] VITALS: BP 118/68
[2021-07-30] MEDS: MORPHINE SULFATE 2 MG/ML CPJ (NOT FOR IM USE) IV PRN (08:50)
[2021-07-30] MEDS: METOPROLOL TARTRATE 5MG/5ML VIAL IV SCH ×2 (08:53→09:17)
[2021-07-30] MEDS: LEVETIRACETAM 500MG TABLET PO SCH (08:54)
[2021-07-30] MEDS: DOCUSATE SODIUM 100MG CAPSULE PO SCH (08:55)
[2021-07-30] MEDS: LAMOTRIGINE 100MG TABLET PO SCH (08:55)
[2021-07-30] MEDS: POLYETHYLENE GLYCOL 3350 (17GM) 1 DOSE PACK PO SCH (08:56)
[2021-07-30] MEDS: LIDOCAINE 5% PATCH TOP SCH (08:57)
[2021-07-30] MEDS: PANTOPRAZOLE SODIUM 40 MG/VIAL IV SCH (09:16)
[2021-07-30 12:00] VITALS: BP 105/60
[2021-07-30] MEDS ORDERED: MORPHINE SULFATE 2 MG/ML CPJ (NOT FOR IM USE) IV PRN (14:00)
[2021-07-30] MEDS ORDERED: NALOXONE HCL 0.4MG/ML VIAL IV PRN (14:15)
[2021-07-30 16:00] VITALS: BP 119/71
[2021-07-30] MEDS: ACETAMINOPHEN 325MG TABLET PO PRN (16:25)
[2021-07-30 17:06] VITALS: BP 119/71
== END 2021-07-30 17:58 | disposition home or self-care (01) | DRG 240 ==
LOC: ER 15:53 → MICUSO 07-25 00:01 → EDBEDREQ 07-25 00:13 → EDBEDREQTM 07-25 00:13 → EDBEDREQDT 07-25 00:13 → 8WST 07-25 03:01
PROVIDERS: ADMIT Internal Medicine; ATTEND Internal Medicine
PROC: 02HV33Z Insertion of Infusion Device into Superior Vena Cava, Percutaneous Approach (ICD-10-PCS; principal; 2021-07-25)
PROC: B548ZZA Ultrasonography of Superior Vena Cava, Guidance (ICD-10-PCS; 2021-07-25)
PROC: B5181ZA Fluoroscopy of Superior Vena Cava using Low Osmolar Contrast, Guidance (ICD-10-PCS; 2021-07-25)
PROC: 0W9G3ZZ Drainage of Peritoneal Cavity, Percutaneous Approach (ICD-10-PCS; 2021-07-29)
DX: C78.6 Secondary malignant neoplasm of retroperitoneum and peritoneum (principal); E46 Unspecified protein-calorie malnutrition; D68.9 Coagulation defect, unspecified; R18.8 Other ascites; R65.10 Systemic inflammatory response syndrome (SIRS) of non-infectious origin without acute organ dysfunction; E72.20 Disorder of urea cycle metabolism, unspecified; E87.1 Hypo-osmolality and hyponatremia; C56.9 Malignant neoplasm of unspecified ovary; K92.2 Gastrointestinal hemorrhage, unspecified; C78.7 Secondary malignant neoplasm of liver and intrahepatic bile duct; E86.0 Dehydration; I10 Essential (primary) hypertension; K59.00 Constipation, unspecified; D53.9 Nutritional anemia, unspecified; Z20.822 Contact with and (suspected) exposure to COVID-19; K44.9 Diaphragmatic hernia without obstruction or gangrene; N39.0 Urinary tract infection, site not specified; Z90.710 Acquired absence of both cervix and uterus; Z79.899 Other long term (current) drug therapy; Z82.49 Family history of ischemic heart disease and other diseases of the circulatory system; Z68.25 Body mass index [BMI] 25.0-25.9, adult
CPT/HCPCS: 36415; 36573; 49083; 71045; 74018; 76705; 80048; 80053; 80061; 81003; 82140; 84439; 84443; 84484; 85018; 85025; 86850; 86900; 87426; 93005; 99291; C1725; C1893; C9113; J0696; J1200; J2060; J2270; J2354; J2405; J2765; J3430; J3490; J7030; J7040; J7050; J7060